=== PATIENT | male | born 1965 | race Two or more races ===

== ENCOUNTER 2021-01-18 18:43 | Emergency (ER) | payer SELFPAY | END 2021-01-19 00:52 | disposition left against medical advice (07) | LOC: EDBD 18:43 → ER 18:48 | DX: F10.129 Alcohol abuse with intoxication, unspecified (principal); Y90.9 Presence of alcohol in blood, level not specified; Z53.21 Procedure and treatment not carried out due to patient leaving prior to being seen by health care provider ==